=== PATIENT | female | born 1930 | race Asian ===

== ENCOUNTER 2019-12-22 13:10 | Inpatient (IN) | payer MEDICARE, MEDICAID ==
[~2019-12-22] VITALS: Ht 160 cm; Wt 47.6 kg
[2019-12-22 13:16] VITALS: BP 114/57
[2019-12-22] MEDS ORDERED: LEVOTHYROXINE75 MCG ORAL (14:13)
[2019-12-22] MEDS ORDERED: XANAX0.5 MG ORAL (14:13)
[2019-12-22] MEDS ORDERED: Morphine Sulfate 2mg/ml Inj(IV/IM USE ONLY) IVP ONE (14:15)
[2019-12-22] MEDS ORDERED: Omnipaque-300 100ml vial INJ PRN (14:15)
[2019-12-22 14:23] LABS: HEMATOCRIT 33.2 % (37.0-47.0); HEMOGLOBIN 10.5 G/DL (12.0-16.0); MEAN CORPUSCULAR VOLUME 107 FL (80-99); PLATELET COUNT 439 K/UL (150-450); RED CELL DISTRIBUTION WIDTH 12.8 % (11.6-14.8); WHITE BLOOD COUNT 18.7 K/UL (4.8-10.8)
[2019-12-22 14:27] LABS: ANION GAP 7 mmol/L (5-15); BLOOD UREA NITROGEN 25 mg/dL (7-18); CARBON DIOXIDE 27 MMOL/L (21-32); CHLORIDE 103 MMOL/L (98-107); CREATININE 1.1 MG/DL (0.55-1.30); POTASSIUM 3.8 MMOL/L (3.5-5.1); SODIUM 137 MMOL/L (136-145)
[2019-12-22 14:29] LABS: APPEARANCE,URINE SLIGHTLY CLOUDY; BILIRUBIN, URINE NEGATIVE (NEGATIVE); GLUCOSE, URINE (UA) NEGATIVE (NEGATIVE); KETONES,URINE NEGATIVE (NEGATIVE); LEUKOCYTE ESTERASE ,URINE 3+ (NEGATIVE); NITRITE,URINE POSITIVE (NEGATIVE); PH,URINE 6.5 (4.5-8.0); PROTEIN,URINE 2+ (NEGATIVE); UROBILINOGEN,URINE NORMAL MG/DL (0.0-1.0)
[2019-12-22 14:32] LABS: ALANINE AMINOTRANSFERASE 15 U/L (12-78); ALBUMIN 2.3 G/DL (3.4-5.0); ALBUMIN/GLOBULIN RATIO 0.4 (1.0-2.7); ALKALINE PHOSPHATASE 111 U/L (46-116); ASPARTATE AMINO TRANSFERASE 19 U/L (15-37); BILIRUBIN,TOTAL 0.3 MG/DL (0.2-1.0)
[2019-12-22 14:37] LABS: COLOR,URINE YELLOW
[2019-12-22] MEDS ORDERED: cefTRIAXone 1 GM in NS 55 ML IVPB ONE (15:30)
--- NOTE | 2019-12-22 15:40 | Diagnostic Imaging Report ---
Indication: Abdominal pain Technique: CT of the abdomen and pelvis utilizing automated exposure control with intravenous contrast. Venous scanning performed. Axial, sagittal and coronal reformats presented. CT dose: Total DLP 138.7 mGycm; CTDI vol 2.9 mGy Comparison: None Findings: Mild atelectatic changes noted in the lung bases. More focal small consolidation noted in the left lower lobe which may related to scarring however developing pneumonia not excluded. There is thickening of the wall of the distal esophagus suggesting esophagitis. Partially imaged heart is normal in size. Hepatic contour is smooth. No focal hepatic mass lesion noted on this single phase exam. Hepatic veins and portal veins appear patent. There are no CT evident gallstones or pericholecystic inflammatory changes. No biliary ductal dilatation. Spleen unremarkable in appearance. There is left adrenal hyperplasia without discrete nodule. Right adrenal gland is normal in appearance. There is a 1.1 cm cyst in the midpole the left kidney. There is no urinary tract stone or hydronephrosis. There is bladder wall thickening. There is no free intraperitoneal air. There is marked retained stool within the colon compatible with constipation. There is distention of the rectum with dense stool with the rectum measuring approximately 9 cm transverse diameter compatible with a fecal impaction. There is rectal wall thickening and presacral stranding suggesting developing stercoral colitis. There is thickening of the wall the stomach. Small bowel loops demonstrate some fluid attenuation but no abnormal distention at this time. Appendix is normal in caliber. Abdominal aorta is normal in caliber with moderate or sclerotic calcification. The bones are demineralized and there are degenerative changes in the spine. No acute fractures identified. IMPRESSION: * Marked stool within the rectum compatible with a rectal fecal impaction. Rectal wall thickening and presacral stranding suggesting an associated stercoral colitis. * Significant retained stool throughout the remainder the colon. * No evidence of abnormal small bowel distention at this time. * Wall thickening involving the distal esophagus and stomach suggesting esophagitis and gastritis. * Small focus of consolidation in the left lower lobe which may represent scarring or atelectasis however developing pneumonia not excluded. * Lateral wall thickening. Correlate with urinalysis to assess for urinary tract infection/cystitis. Additional findings as above. The CT scanner at [facility] is accredited by the [employer] and the scans are performed using protocols designed to limit radiation exposure to as low as reasonably achievable to attain images of sufficient resolution adequate for diagnostic evaluation.
[2019-12-22] MEDS ORDERED: Azithromycin 500 MG in NS 275 ML IV ONE (16:00)
--- NOTE | 2019-12-22 16:00 | Emergency Room Report ---
History of Present Illness General Chief Complaint: Abdominal Pain Source: Patient Present Illness HPI 89-year-old female brought in by EMS from home. Complaining of abdominal pain. States she feels weak. Has not had a bowel movement in 1 week. Denies fevers or chills. Denies chest pain. Denies cough. No other aggravating relieving factors. 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 Patient History Past Medical History: none Past Surgical History: none Pertinent Family History: none Social History: Denies: smoking, alcohol use, drug use Now: No Immunizations: UTD Reviewed Nursing Documentation: PMH: Agreed; PSxH: Agreed Nursing Documentation-PMH Past Medical History: No History, Except For Review of Systems All Other Systems: negative except mentioned in HPI Physical Exam Vital Signs Date Time Temp Pulse Resp B/P (MAP) Pulse Ox O2 Delivery O2 Flow Rate FiO2 12/22/19 13:06 98.1 98 17 114/57 (76) 98 Sp02 EP Interpretation: reviewed, normal General Appearance: no apparent distress, alert, GCS 15, non-toxic Head: normocephalic, atraumatic Eyes: bilateral eye normal inspection, bilateral eye PERRL ENT: hearing grossly normal, normal pharynx, no angioedema, normal voice Neck: full range of motion, supple/symm/no masses Respiratory: chest non-tender, lungs clear, normal breath sounds, speaking full sentences Cardiovascular #1: regular rate, rhythm, no edema Cardiovascular #2: 2+ carotid (R), 2+ carotid (L), 2+ radial (R), 2+ radial (L) , 2+ dorsalis pedis (R), 2+ dorsalis pedis (L) Gastrointestinal: normal bowel sounds, soft, non-distended, no guarding, no rebound, tenderness Rectal: deferred Genitourinary: normal inspection, no CVA tenderness Musculoskeletal: back normal, normal range of motion, gait/station normal, non- tender Neurologic: alert, motor strength/tone normal, oriented x3, sensory intact, responsive, speech normal Psychiatric: judgement/insight normal, memory normal, mood/affect normal, no suicidal/homicidal ideation Reflexes: 3+ bicep (R), 3+ bicep (L), 3+ tricep (R), 3+ tricep (L), 3+ knee (R) , 3+ knee (L) Skin: other - See nursing skin notes Lymphatic: no adenopathy Medical Decision Making Diagnostic Impression: Primary Impression: Abdominal pain Qualified Codes: R10.84 - Generalized abdominal pain Additional Impressions: Constipation Qualified Codes: K59.00 - Constipation, unspecified Colitis UTI (urinary tract infection) Qualified Codes: N39.0 - Urinary tract infection, site not specified ER Course Hospital Course 89 yo F presents c/o abd pain Differential diagnoses include: BPH, cystitis, pyelonephritis, kidney stone Clinical course 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 After initial history and physical I ordered labs, IV fluids, UA, pain medication and CT scan Labs - noted leukocytosis, Hb/Hct stable. Electrolytes okay, UA positive CT abdomen and pelvis -significant fecal impaction, colitis, esophagitis and gastritis. Questionable pneumonia in lower lung bases given IV fluids. Given antibiotics. COVID swab sent Case discussed with Dr. Iqbal and he agreed to accept the patient to his service for further care and support I feel this is a highly complex case requiring extensive working including EKG/ Rhythm strip, Xray/CT/US, Blood/urine lab work, repeat exams while in ED, and administration of strong opiates/narcotics for pain control, admission to hospital or close patient follow up. Diagnosis -abdominal pain, constipation, colitis, UTI Patient admitted to floor in serious condition Labs Test 12/22/19 13:25 12/22/19 13:50 White Blood Count 18.7 K/UL (4.8-10.8) Red Blood Count 3.10 M/UL (4.20-5.40) Hemoglobin 10.5 G/DL (12.0-16.0) Hematocrit 33.2 % (37.0-47.0) Mean Corpuscular Volume 107 FL (80-99) Mean Corpuscular Hemoglobin 33.8 PG (27.0-31.0) Mean Corpuscular Hemoglobin Concent 31.6 G/DL (32.0-36.0) Red Cell Distribution Width 12.8 % (11.6-14.8) Platelet Count 439 K/UL (150-450) Mean Platelet Volume 4.8 FL (6.5-10.1) Neutrophils (%) (Auto) % (45.0-75.0) Lymphocytes (%) (Auto) % (20.0-45.0) Monocytes (%) (Auto) % (1.0-10.0) Eosinophils (%) (Auto) % (0.0-3.0) Basophils (%) (Auto) % (0.0-2.0) Sodium Level 137 MMOL/L (136-145) Potassium Level 3.8 MMOL/L (3.5-5.1) Chloride Level 103 MMOL/L (98-107) Carbon Dioxide Level 27 MMOL/L (21-32) Anion Gap 7 mmol/L (5-15) Blood Urea Nitrogen 25 mg/dL (7-18) Creatinine 1.1 MG/DL (0.55-1.30) Estimat Glomerular Filtration Rate 47.0 mL/min (>60) Glucose Level 137 MG/DL (74-106) Calcium Level 8.0 MG/DL (8.5-10.1) Total Bilirubin 0.3 MG/DL (0.2-1.0) Aspartate Amino Transf (AST/SGOT) 19 U/L (15-37) Alanine Aminotransferase (ALT/SGPT) 15 U/L (12-78) Alkaline Phosphatase 111 U/L (46-116) Total Protein 7.5 G/DL (6.4-8.2) Albumin 2.3 G/DL (3.4-5.0) Globulin 5.2 g/dL Albumin/Globulin Ratio 0.4 (1.0-2.7) Lipase 26 U/L (73-393) Urine Color Yellow Urine Appearance Slightly cloudy Urine pH 6.5 (4.5-8.0) Urine Specific [place] 1.010 (1.005-1.035) Urine Protein 2+ (NEGATIVE) Urine Glucose (UA) Negative (NEGATIVE) Urine Ketones Negative (NEGATIVE) Urine Blood 3+ (NEGATIVE) Urine Nitrite Positive (NEGATIVE) Urine Bilirubin Negative (NEGATIVE) Urine Urobilinogen Normal MG/DL (0.0-1.0) Urine Leukocyte Esterase 3+ (NEGATIVE) Urine RBC 10-15 /HPF (0 - 2) Urine WBC 60-80 /HPF (0 - 2) Urine Squamous Epithelial Cells Few /LPF (NONE/OCC) Urine Bacteria Many /HPF (NONE) CT/MRI/US Diagnostic Results CT/MRI/US Diagnostic Results : Imaging Test Ordered: CT A/P Impression Technique: CT of the abdomen and pelvis utilizing automated exposure control with intravenous contrast. Venous scanning performed. Axial, sagittal and coronal reformats presented. CT dose: Total DLP 138.7 mGycm; CTDI vol 2.9 mGy Comparison: None Findings: Mild atelectatic changes noted in the lung bases. More focal small consolidation noted in the left lower lobe which may related to scarring however developing pneumonia not excluded. There is thickening of the wall of the distal esophagus suggesting esophagitis. Partially imaged heart is normal in size. Hepatic contour is smooth. No focal hepatic mass lesion noted on this single phase exam. Hepatic veins and portal veins appear patent. There are no CT evident gallstones or pericholecystic inflammatory changes. No biliary ductal dilatation. Spleen unremarkable in appearance. There is left adrenal hyperplasia without discrete nodule. Right adrenal gland is normal in appearance. There is a 1.1 cm cyst in the midpole the left kidney. There is no urinary tract stone or hydronephrosis. There is bladder wall thickening. There is no free intraperitoneal air. There is marked retained stool within the colon compatible with constipation. There is distention of the rectum with dense stool with the rectum measuring approximately 9 cm transverse diameter compatible with a fecal impaction. There is rectal wall thickening and presacral stranding suggesting developing stercoral colitis. There is thickening of the wall the stomach. Small bowel loops demonstrate some fluid attenuation but no abnormal distention at this time. Appendix is normal in caliber. Abdominal aorta is normal in caliber with moderate or sclerotic calcification. The bones are demineralized and there are degenerative changes in the spine. No acute fractures identified. IMPRESSION: * Marked stool within the rectum compatible with a rectal fecal impaction. Rectal wall thickening and presacral stranding suggesting an associated stercoral colitis. * Significant retained stool throughout the remainder the colon. * No evidence of abnormal small bowel distention at this time. * Wall thickening involving the distal esophagus and stomach suggesting esophagitis and gastritis. * Small focus of consolidation in the left lower lobe which may represent scarring or atelectasis however developing pneumonia not excluded. * Lateral wall thickening. Correlate with urinalysis to assess for urinary tract infection/cystitis. Additional findings as above. The CT scanner at [facility] is accredited by the [employer] and the scans are performed using protocols designed to limit radiation exposure to as low as reasonably achievable to attain images of sufficient resolution adequate for diagnostic evaluation. Last Vital Signs Date Time Temp Pulse Resp B/P (MAP) Pulse Ox O2 Delivery O2 Flow Rate FiO2 12/22/19 15:44 98.5 79 16 111/59 99 Status: improved Disposition: SHORT-TERM HOSP Referrals: NOT CHOSEN IPA/,REFERRING (PCP) Edgardo Craft MD Dec 22, 2019 16:00
[2019-12-22 17:05] VITALS: BP 126/60
[2019-12-22] MEDS ORDERED: HYDROcodone/Acetamin 5/325 tab ORAL PRN (18:30)
--- NOTE | 2019-12-22 18:55 | Cardiology Progress Note ---
Assessment/Plan Assessment/Plan The patient is seen and examined full consult note is dictated. Objective Last 24 Hour Vital Signs Date Time Temp Pulse Resp B/P (MAP) Pulse Ox O2 Delivery O2 Flow Rate FiO2 12/22/19 15:44 98.5 79 16 111/59 99 12/22/19 14:44 98.1 12/22/19 13:16 98.1 98 17 114/57 98 12/22/19 13:16 98 17 12/22/19 13:06 98.1 98 17 114/57 (76) 98 Laboratory Tests Test 12/22/19 13:25 12/22/19 13:50 12/22/19 15:56 White Blood Count 18.7 K/UL (4.8-10.8) H Red Blood Count 3.10 M/UL (4.20-5.40) L Hemoglobin 10.5 G/DL (12.0-16.0) L Hematocrit 33.2 % (37.0-47.0) L Mean Corpuscular Volume 107 FL (80-99) H Mean Corpuscular Hemoglobin 33.8 PG (27.0-31.0) H Mean Corpuscular Hemoglobin Concent 31.6 G/DL (32.0-36.0) L Red Cell Distribution Width 12.8 % (11.6-14.8) Platelet Count 439 K/UL (150-450) Mean Platelet Volume 4.8 FL (6.5-10.1) L Neutrophils (%) (Auto) % (45.0-75.0) Lymphocytes (%) (Auto) % (20.0-45.0) Monocytes (%) (Auto) % (1.0-10.0) Eosinophils (%) (Auto) % (0.0-3.0) Basophils (%) (Auto) % (0.0-2.0) Differential Total Cells Counted 100 Neutrophils % (Manual) 86 % (45-75) H Lymphocytes % (Manual) 5 % (20-45) L Monocytes % (Manual) 5 % (1-10) Eosinophils % (Manual) 4 % (0-3) H Basophils % (Manual) 0 % (0-2) Band Neutrophils 0 % (0-8) Platelet Estimate Adequate Platelet Morphology Normal Hypochromasia 1+ Anisocytosis Macrocytosis 1+ Sodium Level 137 MMOL/L (136-145) Potassium Level 3.8 MMOL/L (3.5-5.1) Chloride Level 103 MMOL/L (98-107) Carbon Dioxide Level 27 MMOL/L (21-32) Anion Gap 7 mmol/L (5-15) Blood Urea Nitrogen 25 mg/dL (7-18) H Creatinine 1.1 MG/DL (0.55-1.30) Estimat Glomerular Filtration Rate 47.0 mL/min (>60) Glucose Level 137 MG/DL (74-106) H Calcium Level 8.0 MG/DL (8.5-10.1) L Total Bilirubin 0.3 MG/DL (0.2-1.0) Aspartate Amino Transf (AST/SGOT) 19 U/L (15-37) Alanine Aminotransferase (ALT/SGPT) 15 U/L (12-78) Alkaline Phosphatase 111 U/L (46-116) Total Protein 7.5 G/DL (6.4-8.2) Albumin 2.3 G/DL (3.4-5.0) L Globulin 5.2 g/dL Albumin/Globulin Ratio 0.4 (1.0-2.7) L Lipase 26 U/L (73-393) L Urine Color Yellow Urine Appearance Slightly cloudy Urine pH 6.5 (4.5-8.0) Urine Specific [place] 1.010 (1.005-1.035) Urine Protein 2+ (NEGATIVE) H Urine Glucose (UA) Negative (NEGATIVE) Urine Ketones Negative (NEGATIVE) Urine Blood 3+ (NEGATIVE) H Urine Nitrite Positive (NEGATIVE) H Urine Bilirubin Negative (NEGATIVE) Urine Urobilinogen Normal MG/DL (0.0-1.0) Urine Leukocyte Esterase 3+ (NEGATIVE) H Urine RBC 10-15 /HPF (0 - 2) H Urine WBC 60-80 /HPF (0 - 2) H Urine Squamous Epithelial Cells Few /LPF (NONE/OCC) Urine Bacteria Many /HPF (NONE) H Lactic Acid Level 3.80 mmol/L (0.4-2.0) H Dwayne Poole MD Dec 22, 2019 18:55
--- NOTE | 2019-12-22 19:25 | Consultation ---
Consult Note Consult Note I am asked to evaluate the patient at the request of for fluid and electrolyte management. Patient Bel[place]ian speaking. Patient seen at 7:15 PM. Discussed with BARON Manuel. Patient examined. Data reviewed. Emergency room note: 89-year-old female brought in by EMS from home. Complaining of abdominal pain. States she feels weak. Has not had a bowel movement in 1 week. Denies fevers or chills. Denies chest pain. Denies cough. No other aggravating relieving factors. Denies any other associated symptoms No Known Allergies (Unverified , 12/22/19) COVID-19 Screening Contact w/high risk pt: No Recent Travel to affected area: No Experienced COVID-19 symptoms?: No COVID-19 Testing performed FINANCIAL CONSULTANT: No Past Medical History: none Past Surgical History: none Assessment/Plan UTI, high lactic acid, leukocytosis Abdominal pain, constipation, colitis. Anemia Hypothyroidism Suggestions: Antibiotics Slow hydration Anemia work-up Thyroid function test Per consultants James Campos MD Dec 22, 2019 19:25
[2019-12-22 21:00] VITALS: BP 142/71
[2019-12-23] VITALS: BP 119/60
[2019-12-23] MEDS ORDERED: ALPRAZolam 0.5mg tab ORAL PRN (02:30)
[2019-12-23 04:00] VITALS: BP 104/51
--- NOTE | 2019-12-23 06:14 | Consultation ---
DATE OF CONSULTATION: 12/22/2019 NOTE: INCOMPLETE DICTATION CARDIOLOGY CONSULTATION CONSULTING PHYSICIAN: Dwayne Poole MD. REFERRING PHYSICIAN: Jean Claude Iqbal MD. REASON FOR CONSULTATION: Management of tachycardia. HISTORY OF PRESENT ILLNESS: Patient is a very unfortunate 89-year-old female who was brought from home for complaints of abdominal pain. The patient also has had complaints of generalized weakness as well as constipation. At the time of arrival to this facility, the patient denies any fever or chills or cough. She did not have any chest pain or shortness of breath. At the time of arrival to this facility, blood pressure was 114/57, pulse of 98. A 12-lead electrocardiogram was significant for sinus rhythm with no acute ischemic changes. The patient was admitted for abdominal pain, possibility of urinary tract infection. Cardiology consultation was made at request of Dr. Iqbal for management of tachycardia. PAST MEDICAL HISTORY: 1. Hypothyroidism. 2. Anxiety disorder. ALLERGIES: No known drug allergies. PAST SURGICAL HISTORY: None. FAMILY HISTORY: No premature coronary artery disease in the first-degree relatives. REVIEW OF SYSTEMS: HEENT: Denies any headache, diplopia, or blurred vision. CONSTITUTIONAL: Generalized weakness. No fever, chills, night sweats, or weight loss. CARDIOVASCULAR: Denies any chest pain, shortness breath, PND, orthopnea, or leg swelling. PULMONARY: Denies any cough, hemoptysis, or wheezing. GASTROINTESTINAL: Abdominal pain, but no nausea, vomiting, or diarrhea. Positive for constipation. GENITOURINARY: Denies any hematuria, dysuria, or incontinence. NEUROLOGIC: Denies any motor dysfunction, sensory deficit, or altered speech. HABITS: Denies any tobacco, alcohol, or illicit drug use. LIST OF MEDICATIONS: Levothyroxine. Dwayne Poole M.D. DR: STACI JOB#: [id number] CC:
[2019-12-23 07:31] LABS: HEMATOCRIT 29.1 % (37.0-47.0); HEMOGLOBIN 9.3 G/DL (12.0-16.0); MEAN CORPUSCULAR VOLUME 107 FL (80-99); PLATELET COUNT 373 K/UL (150-450); RED BLOOD COUNT 2.72 M/UL (4.20-5.40); RED CELL DISTRIBUTION WIDTH 12.9 % (11.6-14.8)
[2019-12-23 07:36] LABS: WHITE BLOOD COUNT 26.3 K/UL (4.8-10.8)
[2019-12-23 08:00] VITALS: BP 112/56
[2019-12-23 08:27] LABS: ALANINE AMINOTRANSFERASE 33 U/L (12-78); ALBUMIN/GLOBULIN RATIO 0.4 (1.0-2.7); ALKALINE PHOSPHATASE 99 U/L (46-116); ANION GAP 8 mmol/L (5-15); ASPARTATE AMINO TRANSFERASE 82 U/L (15-37); BILIRUBIN,TOTAL 0.2 MG/DL (0.2-1.0); BLOOD UREA NITROGEN 23 mg/dL (7-18); CALCIUM 7.5 MG/DL (8.5-10.1); CARBON DIOXIDE 25 MMOL/L (21-32); CHLORIDE 108 MMOL/L (98-107); CHOLESTEROL 88 MG/DL (< 200); CREATINE KINASE 1203 U/L (26-308); FERRITIN 281 NG/ML (8-388); HDL CHOLESTEROL 41 MG/DL (40-60); LACTATE DEHYDROGENASE 234 U/L (81-234); POTASSIUM 3.5 MMOL/L (3.5-5.1); SODIUM 141 MMOL/L (136-145); TRIGLYCERIDES 40 MG/DL (30-150)
[2019-12-23 08:28] LABS: IRON 12 ug/dL (50-175)
[2019-12-23] MEDS ORDERED: ALPRAZolam 0.5mg tab ORAL SCH (09:00)
[2019-12-23] MEDS ORDERED: Docusate 100mg cap ORAL SCH (09:00)
[2019-12-23] MEDS ORDERED: Enoxaparin 40mg Inj SUBQ SCH (09:00)
[2019-12-23 09:04] LABS: % IRON SATURATION 9 % (15-50); TOTAL IRON BINDING CAPACITY 140 ug/dL (250-450)
--- NOTE | 2019-12-23 09:21 | History & Physical ---
History and Physical History & Physicial seen and examined. Dictation completed on 918 hours Jean Claude Iqbal MD Dec 23, 2019 09:21
--- NOTE | 2019-12-23 09:23 | General Progress Note ---
Assessment/Plan Assessment/Plan: A/P : 1- Sepsis 2- UTI 3- Refusal of medical treatment Plan: Start empirical abx ID-Pulmonary- Cardio and Nephro are consulted Subjective Allergies: Coded Allergies: No Known Allergies (Unverified , 12/22/19) Objective Last 24 Hour Vital Signs Date Time Temp Pulse Resp B/P (MAP) Pulse Ox O2 Delivery O2 Flow Rate FiO2 12/23/19 08:00 98.1 82 18 112/56 (74) 97 12/23/19 07:56 Room Air 12/23/19 04:00 98.1 88 18 104/51 (68) 97 12/23/19 00:00 98.1 94 18 119/60 (79) 96 12/22/19 21:00 Room Air 12/22/19 21:00 98.7 109 20 142/71 (94) 96 12/22/19 18:21 Room Air 12/22/19 17:05 98.4 117 18 126/60 (82) 96 12/22/19 15:44 98.5 79 16 111/59 99 12/22/19 14:44 98.1 12/22/19 13:16 98.1 98 17 114/57 98 12/22/19 13:16 98 17 12/22/19 13:06 98.1 98 17 114/57 (76) 98 Intake and Output 12/22/19 12/23/19 19:00 07:00 Intake Total 500 ml Output Total 0 ml Balance 500 ml Intake IV Total 500 ml Output Urine Total 0 ml # Voids 1 Laboratory Tests 12/22/19 13:25: White Blood Count 18.7H, Red Blood Count 3.10L, Hemoglobin 10.5L, Hematocrit 33.2L, Mean Corpuscular Volume 107H, Mean Corpuscular Hemoglobin 33.8H, Mean Corpuscular Hemoglobin Concent 31.6L, Red Cell Distribution Width 12.8, Platelet Count 439, Mean Platelet Volume 4.8L, Neutrophils (%) (Auto) , Lymphocytes (%) (Auto) , Monocytes (%) (Auto) , Eosinophils (%) (Auto) , Basophils (%) (Auto) , Differential Total Cells Counted 100, Neutrophils % ( Manual) 86H, Lymphocytes % (Manual) 5L, Monocytes % (Manual) 5, Eosinophils % ( Manual) 4H, Basophils % (Manual) 0, Band Neutrophils 0, Platelet Estimate Adequate, Platelet Morphology Normal, Hypochromasia 1+, Anisocytosis , Macrocytosis 1+, Sodium Level 137, Potassium Level 3.8, Chloride Level 103, Carbon Dioxide Level 27, Anion Gap 7, Blood Urea Nitrogen 25H, Creatinine 1.1, Estimat Glomerular Filtration Rate 47.0, Glucose Level 137H, Calcium Level 8.0L , Total Bilirubin 0.3, Aspartate Amino Transf (AST/SGOT) 19, Alanine Aminotransferase (ALT/SGPT) 15, Alkaline Phosphatase 111, Total Protein 7.5, Albumin 2.3L, Globulin 5.2, Albumin/Globulin Ratio 0.4L, Lipase 26L 12/22/19 13:50: Urine Color Yellow, Urine Appearance Slightly cloudy, Urine pH 6.5, Urine Specific [place] 1.010, Urine Protein 2+H, Urine Glucose (UA) Negative, Urine Ketones Negative, Urine Blood 3+H, Urine Nitrite PositiveH, Urine Bilirubin Negative, Urine Urobilinogen Normal, Urine Leukocyte Esterase 3+H, Urine RBC 10- 15H, Urine WBC 60-80H, Urine Squamous Epithelial Cells Few, Urine Bacteria ManyH 12/22/19 15:56: Lactic Acid Level 3.80H 12/22/19 22:11: Lactic Acid Level 4.60H 12/23/19 05:00: White Blood Count 26.3*H, Red Blood Count 2.72L, Hemoglobin 9.3L, Hematocrit 29.1L, Mean Corpuscular Volume 107H, Mean Corpuscular Hemoglobin 34.1H, Mean Corpuscular Hemoglobin Concent 32.0, Red Cell Distribution Width 12.9, Platelet Count 373, Mean Platelet Volume 5.0L, Neutrophils (%) (Auto) , Lymphocytes (%) ( Auto) , Monocytes (%) (Auto) , Eosinophils (%) (Auto) , Basophils (%) (Auto) , Neutrophils % (Manual) [Pending], Lymphocytes % (Manual) [Pending], Platelet Estimate [Pending], Platelet Morphology [Pending], Sodium Level 141, Potassium Level 3.5, Chloride Level 108H, Carbon Dioxide Level 25, Anion Gap 8, Blood Urea Nitrogen 23H, Creatinine 1.0, Estimat Glomerular Filtration Rate 52.5, Glucose Level 111H, Hemoglobin A1c 5.7, Uric Acid 4.1, Calcium Level 7.5L, Phosphorus Level 3.0, Magnesium Level 2.2, Iron Level 12L, Total Iron Binding Capacity 140L, Percent Iron Saturation 9L, Unsaturated Iron Binding 128, Ferritin 281, Total Bilirubin 0.2, Aspartate Amino Transf (AST/SGOT) 82H, Alanine Aminotransferase (ALT/SGPT) 33, Alkaline Phosphatase 99, Lactate Dehydrogenase 234, Total Creatine Kinase 1203H, Troponin I 0.082H, C-Reactive Protein, Quantitative 7.0H, Pro-B-Type Natriuretic Peptide 3893H, Total Protein 6.7, Albumin 2.0L, Globulin 4.7, Albumin/Globulin Ratio 0.4L, Triglycerides Level 40, Cholesterol Level 88, LDL Cholesterol 36, HDL Cholesterol 41, Cholesterol/HDL Ratio 2.1L, Vitamin B12 Level 1628H, Folate 18.5, Thyroid Stimulating Hormone (TSH) 0.916 Height (Feet): 5 Height (Inches): 3.00 Weight (Pounds): 105 Jean Claude Iqbal MD Dec 23, 2019 09:23
[2019-12-23] MEDS ORDERED: Vancomycin 1.25gm/NS Premix 275 ML IVPB SCH (09:30)
[2019-12-23] MEDS ORDERED: Cefepime HCl 1 GM in D5W 55 ML IVPB SCH (10:00)
[2019-12-23] MEDS ORDERED: Vancomycin 1gm/D5W 275ml IVPB ONE ×2 (11:00)
--- NOTE | 2019-12-23 11:14 | Nephrology Progress Note ---
Assessment/Plan Problem List: (1) Sepsis (2) UTI (urinary tract infection) (3) Dehydration (4) Elevated troponin I level (5) Anemia Plan Today's labs were reviewed. Lactic acid remains high. Leukocytosis worsened. Elevated troponin I. Despite of Dr. Iqbal's discussion with the patient and Malay nurse translating, the patient decided to refuse treatment and leave AGAINST MEDICAL ADVICE. Subjective ROS Limited/Unobtainable: No Constitutional: Reports: malaise Objective Objective Last 24 Hour Vital Signs Date Time Temp Pulse Resp B/P (MAP) Pulse Ox O2 Delivery O2 Flow Rate FiO2 12/23/19 08:00 98.1 82 18 112/56 (74) 97 12/23/19 07:56 Room Air 12/23/19 04:00 98.1 88 18 104/51 (68) 97 12/23/19 00:00 98.1 94 18 119/60 (79) 96 12/22/19 21:00 Room Air 12/22/19 21:00 98.7 109 20 142/71 (94) 96 12/22/19 18:21 Room Air 12/22/19 17:05 98.4 117 18 126/60 (82) 96 12/22/19 15:44 98.5 79 16 111/59 99 12/22/19 14:44 98.1 12/22/19 13:16 98.1 98 17 114/57 98 12/22/19 13:16 98 17 12/22/19 13:06 98.1 98 17 114/57 (76) 98 Intake and Output 12/22/19 12/23/19 19:00 07:00 Intake Total 500 ml Output Total 0 ml Balance 500 ml Intake IV Total 500 ml Output Urine Total 0 ml # Voids 1 Current Medications Medications (Trade) Dose Ordered Sig/Jeanette Route PRN Reason Start Time Stop Time Status Last Admin Dose Admin Acetaminophen (Tylenol) 650 mg Q4H PRN ORAL Mild Pain 1-3/temp 12/22/19 18:30 01/21/20 18:29 Acetaminophen/ Hydrocodone Bitart (Walker 5/325) 1 tab Q4H PRN ORAL Moderate Pain (Pain Scale 4-6) 12/22/19 18:30 12/29/19 18:29 Alprazolam (Xanax) 0.5 mg DAILY ORAL 12/23/19 09:00 12/30/19 08:59 12/23/19 08:38 Alprazolam (Xanax) 1 mg BEDTIME PRN ORAL insomnia 12/23/19 02:30 12/30/19 02:29 Cefepime HCl 1 gm/ Dextrose 55 ml @ 110 mls/hr EVERY 12 HOURS IVPB 12/23/19 10:00 12/30/19 09:59 Docusate Sodium (Colace) 100 mg THREE TIMES A DAY ORAL 12/23/19 09:00 01/22/20 08:59 12/23/19 08:38 Enoxaparin Sodium (Lovenox) 30 mg DAILY SUBQ 12/23/19 09:00 03/22/20 08:59 12/23/19 08:40 Iohexol (OMNIPAQUE-300 100ml) 100 ml NOW PRN INJ Radiology Procedure 12/22/19 14:15 12/24/19 14:07 Levothyroxine Sodium (Synthroid) 75 mcg ACBREAKFAST ORAL 12/23/19 06:30 01/22/20 06:29 12/23/19 06:11 Ondansetron HCl (Zofran) 4 mg Q4H PRN IVP Nausea & Vomiting 12/22/19 18:30 01/21/20 18:29 Pantoprazole (Protonix) 40 mg Q12HR ORAL 12/22/19 21:00 01/22/20 06:29 12/23/19 08:38 Vancomycin HCl (Vanco pharmacy to dose) 1 ea DAILY PRN MISC Per rx protocol 12/23/19 09:30 01/22/20 09:29 Vancomycin HCl 500 mg/Dextrose 110 ml @ 110 mls/hr Q24H IVPB 12/24/19 11:00 12/29/19 10:59 Vancomycin HCl 1 gm/Dextrose 275 ml @ 183.708 mls/hr ONCE ONCE IVPB 12/23/19 11:00 12/23/19 12:29 Laboratory Tests 12/22/19 13:25: White Blood Count 18.7H, Red Blood Count 3.10L, Hemoglobin 10.5L, Hematocrit 33.2L, Mean Corpuscular Volume 107H, Mean Corpuscular Hemoglobin 33.8H, Mean Corpuscular Hemoglobin Concent 31.6L, Red Cell Distribution Width 12.8, Platelet Count 439, Mean Platelet Volume 4.8L, Neutrophils (%) (Auto) , Lymphocytes (%) (Auto) , Monocytes (%) (Auto) , Eosinophils (%) (Auto) , Basophils (%) (Auto) , Differential Total Cells Counted 100, Neutrophils % ( Manual) 86H, Lymphocytes % (Manual) 5L, Monocytes % (Manual) 5, Eosinophils % ( Manual) 4H, Basophils % (Manual) 0, Band Neutrophils 0, Platelet Estimate Adequate, Platelet Morphology Normal, Hypochromasia 1+, Anisocytosis , Macrocytosis 1+, Sodium Level 137, Potassium Level 3.8, Chloride Level 103, Carbon Dioxide Level 27, Anion Gap 7, Blood Urea Nitrogen 25H, Creatinine 1.1, Estimat Glomerular Filtration Rate 47.0, Glucose Level 137H, Calcium Level 8.0L , Total Bilirubin 0.3, Aspartate Amino Transf (AST/SGOT) 19, Alanine Aminotransferase (ALT/SGPT) 15, Alkaline Phosphatase 111, Total Protein 7.5, Albumin 2.3L, Globulin 5.2, Albumin/Globulin Ratio 0.4L, Lipase 26L 12/22/19 13:50: Urine Color Yellow, Urine Appearance Slightly cloudy, Urine pH 6.5, Urine Specific [place] 1.010, Urine Protein 2+H, Urine Glucose (UA) Negative, Urine Ketones Negative, Urine Blood 3+H, Urine Nitrite PositiveH, Urine Bilirubin Negative, Urine Urobilinogen Normal, Urine Leukocyte Esterase 3+H, Urine RBC 10- 15H, Urine WBC 60-80H, Urine Squamous Epithelial Cells Few, Urine Bacteria ManyH 12/22/19 15:56: Lactic Acid Level 3.80H 12/22/19 22:11: Lactic Acid Level 4.60H 12/23/19 05:00: White Blood Count 26.3*H, Red Blood Count 2.72L, Hemoglobin 9.3L, Hematocrit 29.1L, Mean Corpuscular Volume 107H, Mean Corpuscular Hemoglobin 34.1H, Mean Corpuscular Hemoglobin Concent 32.0, Red Cell Distribution Width 12.9, Platelet Count 373, Mean Platelet Volume 5.0L, Neutrophils (%) (Auto) , Lymphocytes (%) ( Auto) , Monocytes (%) (Auto) , Eosinophils (%) (Auto) , Basophils (%) (Auto) , Neutrophils % (Manual) [Pending], Lymphocytes % (Manual) [Pending], Platelet Estimate [Pending], Platelet Morphology [Pending], Sodium Level 141, Potassium Level 3.5, Chloride Level 108H, Carbon Dioxide Level 25, Anion Gap 8, Blood Urea Nitrogen 23H, Creatinine 1.0, Estimat Glomerular Filtration Rate 52.5, Glucose Level 111H, Hemoglobin A1c 5.7, Uric Acid 4.1, Calcium Level 7.5L, Phosphorus Level 3.0, Magnesium Level 2.2, Iron Level 12L, Total Iron Binding Capacity 140L, Percent Iron Saturation 9L, Unsaturated Iron Binding 128, Ferritin 281, Total Bilirubin 0.2, Aspartate Amino Transf (AST/SGOT) 82H, Alanine Aminotransferase (ALT/SGPT) 33, Alkaline Phosphatase 99, Lactate Dehydrogenase 234, Total Creatine Kinase 1203H, Troponin I 0.082H, C-Reactive Protein, Quantitative 7.0H, Pro-B-Type Natriuretic Peptide 3893H, Total Protein 6.7, Albumin 2.0L, Globulin 4.7, Albumin/Globulin Ratio 0.4L, Triglycerides Level 40, Cholesterol Level 88, LDL Cholesterol 36, HDL Cholesterol 41, Cholesterol/HDL Ratio 2.1L, Vitamin B12 Level 1628H, Folate 18.5, Thyroid Stimulating Hormone (TSH) 0.916 Height (Feet): 5 Height (Inches): 3.00 Weight (Pounds): 105 Objective Patient chose to refuse medical treatment despite of multiple medical issues discussed with him by PMD! James Campos MD Dec 23, 2019 11:14
--- NOTE | 2019-12-23 13:29 | History and Physical Report ---
DATE OF ADMISSION: 12/22/2019 SOURCE OF INFORMATION: Patient and EMR. HISTORY OF PRESENT ILLNESS: The patient is an 89-year-old Nepali female with a history of anxiety, who presented for not feeling well. The patient had been sent to the hospital by her sister. At the time of evaluation, the patient requested to be discharged and to be sent home. The Nepali speaking nurse at the bedside assisted me to explain the patient regarding the risks of making such a decision including but not limited to . She understood. Denies any fever or chills. Denies any severe pain. Denies any abnormal bleeding. PAST MEDICAL AND SURGICAL HISTORY: Including anxiety disorder. MEDICATIONS: Current hospital medications including ceftriaxone, levothyroxine. FAMILY HISTORY: Reviewed and noncontributory. SOCIAL HISTORY: The patient's next family member is her sister. No documented history of illicit drug abuse, tobacco smoking, or alcohol abuse. REVIEW OF SYSTEMS: All 12 elements of review of systems reviewed, pertinent positives and negatives as above. PHYSICAL EXAMINATION: VITAL SIGNS: Blood pressure 140/80, temperature 98.1, pulse rate 100, respiratory rate 18. HEAD AND NECK: Atraumatic and normocephalic. CHEST: Clear to auscultation. HEART: S1, S2. Regular rate and rhythm. ABDOMEN: Soft. No organomegaly. MUSCULOSKELETAL: No gross lateralized motor deficit. NEUROLOGIC: The patient is awake, alert, and oriented x3. LABORATORY DATA: Labs dated 12/22/2019 shows WBC 18.7, hemoglobin of 10.5, platelets of 439,000. UA shows 60 wbc's, nitrite positive. Chemistry shows creatinine of 1, serum iron of 12, iron saturation of 9. Troponin of 0.08. ASSESSMENT: 1. Sepsis. 2. UTI. 3. Abnormal troponin. 4. Iron deficiency anemia. 5. Refusal of medical care. 6. GI and DVT prophylaxes. PLAN OF CARE: At this point, as explained in the history of present illness segment, the patient is refusing the care. Start the empiric antibiotic treatment pending the blood cultures. Infectious Disease, Cardiology, and Nephrology are consulted. Jean Claude Iqbal M.D. DR: CHONG JOB#: [id number] CC:
[2019-12-23] MEDS ORDERED: cefTRIAXone 1 GM in D5W 55 ML IVPB SCH (15:30)
[2019-12-24] MEDS ORDERED: Vancomycin 500mg/D5W 110ml IVPB SCH ×2 (11:00)
--- NOTE | 2019-12-24 11:37 | Discharge Summary ---
Discharge Summary Discharge Summary _ DATE OF ADMISSION: 12/22/2019 DATE OF DISCHARGE: 12/23/2019 Patient left AGAINST MEDICAL ADVICE REASON FOR ADMISSION: 89 years old female with past medical history of hypothyroidism, dementia, anxiety, was brought by paramedics from home. Patient was complaining of abdominal pain and feeling weak. Patient had no bowel movement in 1 week. No fever or chills. No chest pain or SOB. Laboratory work-up revealed leukocytosis WBC 18.7, hemoglobin 10.5, hematocrit 33.2. Platelet count 439. Stable electrolytes. BUN 25, creatinine 1.1. Glucose 137. Stable LFT and lipase. Albumin 2.3. Lactic acid 3.[address] scan of the abdomen and pelvis revealed marked stool within the rectum compatible with rectal fecal impaction. Rectal wall thickening and presacral stranding suggesting associated stercoral colitis. No evidence of small bowel distention. Wall thickening involving the distal esophagus and stomach suggesting esophagitis and gastritis. Small focus of consolidation in the left lower lobe may represent scaring or atelectasis, however developing pneumonia was not excluded. Lateral wall thickening of bladder. Urinalysis revealed pyuria ,many bacteria ,positive nitrate ,+3 leukocyte esterase ,+2 protein. In the emergency department patient received IV fluids , pancultured, started on empiric antibiotic . Patient was swabbed for COVID-19 . Patient received analgesic and subsequently admitted for further management. CONSULTANTS: intake nurse Dr. Poole paint coating machine operator Dr. Campos [facility] COURSE: Patient admitted to medical surgical floor. Patient was on slow hydration as per paint coating machine operator. Patient started on broad-spectrum antibiotics. ID consult requested antibiotics continued. Bowel regimen instituted. GI prophylaxis provided. Urine culture revealed growth of E. coli. Blood cultures were negative. COVID-19 on 12/21 was not detected. Patient noted to have elevated troponin 0.082. Cardiology consult was requested. Serial troponi were ordered. patietn denied chest pain, Lipid panel was stable. DVT prophylaxis provided. Renal parameters and electrolytes were closely monitored. BUN from 25 down to 23 in 1 day. Creatinine remained stable. TSH within normal limits. Hemoglobin A1c 5.7. Hemoglobin and hematocrit were closely monitored with goal to keep hemoglobin above 7 , prior to signing AMA hemoglobin 9.3 hematocrit 29.1. Anemia work-up revealed evidence of anemia of chronic disease. Stable folate and B12. Pain management was addressed as needed. Patient decided to leave AGAINST MEDICAL ADVICE. The risks and consequences of signing AGAINST MEDICAL ADVICE were discussed with patient in detail. Patient verbalized understanding, nevertheless signed AMA form and left. FINAL DIAGNOSES: Probably sepsis UTI Lactic acidosis Refusal of medical treatment Anemia Abdominal pain Constipation /fecal impaction Colitis Hypothyroidism Anxiety I have been assigned to dictate discharge summary for this account. I was not involved in the patient's management. Thi Jarrell NP Dec 24, 2019 11:37
--- NOTE | 2019-12-25 08:31 | Consultation ---
DATE OF CONSULTATION: 12/23/2019 HISTORY OF PRESENT ILLNESS: This is an 89-year-old female who . The patient has a history of anxiety disorder, who has been admitted to the hospital for feeling sick. The patient is and she appears to have anxious, refusing care. The patient has poor insight, wanted to leave AMA inability to understand and comprehend risks versus benefit. PAST PSYCHIATRIC HISTORY: Anxiety disorder. PAST MEDICAL HISTORY: UTI, anemia, and hypothyroidism. ALLERGIES: No known drug allergies. SUBSTANCE ABUSE HISTORY: No known history of illicit drug use or alcohol. MENTAL STATUS EXAMINATION: The patient is alert and oriented times self, place, situation, and date. Mood is anxious. Affect is constricted. Congruent with mood. Thought process is concrete. Thought content, no suicidal or homicidal ideation. Cognition is intact. Insight and judgment are fair. ASSESSMENT: [place] 1 Anxiety disorder. Cognitive impairment. [place] II Deferred. [place] III As above. [place] IV Low. [place] V 20. PLAN: 1. The patient lacks capacity to make decision. 2. Continue Xanax p.r.n. 3. Discussed with the nurse. Cesar Foster M.D. DR: VAISHNAVI JOB#: [id number] CC:
== END 2019-12-23 09:00 | disposition left against medical advice (07) | DRG 872 ==
LOC: EDBD 13:10 → EDBEDREQ 13:30 → EMR 13:34 → 3E 14:01 → EDBEDREQ 15:15 → 4E 16:33
DX: A41.9 Sepsis, unspecified organism (principal); N39.0 Urinary tract infection, site not specified; D50.9 Iron deficiency anemia, unspecified; E03.9 Hypothyroidism, unspecified; F03.90 Unspecified dementia, unspecified severity, without behavioral disturbance, psychotic disturbance, mood disturbance, and anxiety; F41.9 Anxiety disorder, unspecified; Z53.29 Procedure and treatment not carried out because of patient's decision for other reasons; K56.41 Fecal impaction; K52.9 Noninfective gastroenteritis and colitis, unspecified; E86.0 Dehydration; R74.8 Abnormal levels of other serum enzymes
CPT/HCPCS: 36415; 74177; 80053; 80061; 81003; 82550; 82607; 82728; 82746; 83036; 83540; 83550; 83605; 83615; 83690; 83735; 83880; 84100; 84443; 84484; 84550; 85007; 85025; 86140; 87040; 87086; 87181; 96361; 96365; 96375; 99285; J7030